=== PATIENT | female | born 1990 | race American Indian/Alaskan Native ===

== ENCOUNTER 2018-12-31 21:51 | Emergency (ER) | payer SELFPAY ==
--- NOTE | 2018-12-31 22:07 | Emergency Department Report ---
Blank Doc - Documentation Documentation: This is a 28-year-old female that presents with URI symptoms. Stated has some chest discomfort only when coughing. This initial assessment/diagnostic orders/clinical plan/treatment(s) is/are subject to change based on patient's health status, clinical progression and re-assessment by fellow clinical providers in the ED. Further treatment and workup at subsequent clinical providers discretion. Patient/guardians urged not to elope from the ED as their condition may be serious if not clinically assessed and managed. Initial orders include: 1- Patient sent to [facility] for further evaluation and treatment 2- cxr
--- NOTE | 2018-12-31 23:04 | XRay Report ---
PROCEDURE: XR CHEST ROUTINE 2V TECHNIQUE: PA and lateral chest radiographs were obtained. HISTORY: cough COMPARISONS: None. FINDINGS: Heart: Normal. Mediastinum/Vessels: Normal. Lungs/Pleural space: Normal. Bony thorax: No acute osseous abnormality. IMPRESSION: Normal examination. This document is electronically signed by Rolan Martinez MD., December 31 2018 11:02:35 PM ET
[2019-01-01 03:17] VITALS: BP 182/99
[2019-01-01] MEDS ORDERED: MOTRIN PO ONE (03:41)
[2019-01-01] MEDS ORDERED: PROVENTIL IH ONE (03:41)
[2019-01-01] MEDS ORDERED: DECADRON IM ONE (03:44)
--- NOTE | 2019-01-01 03:50 | Emergency Department Report ---
- General Chief Complaint: Upper Respiratory Infection Stated Complaint: CHEST PAIN/COUGH Time Seen by Provider: 12/31/18 22:06 Source: patient Mode of arrival: Ambulatory Limitations: No Limitations - History of Present Illness Initial Comments: This is a 28-year-old female that presents with URI symptoms. Stated has some chest discomfort only when coughing. MD Complaint: fever, cough, sore throat, rhinorrhea, nasal congestion, sinus pain Onset/Timin -: week(s) Severity: moderate Severity scale (0 -10): 3 Quality: aching Consistency: constant Improves With: nothing Worsens With: activity Context: sick contacts (sister tx for same problem ) Associated Symptoms: fever, chills, rhinorrhea, nasal congestion, sore throat, cough, chest pain (chest wall pain with cough only ), hoarseness, ear pain. denies: shortness of breath, nausea, vomiting, diarrhea, dysuria, rash Treatments Prior to Arrival: Acetaminophen - Related Data Previous Rx's Medication Instructions Recorded Last Taken Type ALBUTEROL Inhaler(NF) [VENTOLIN 2 puff IH Q4H PRN #1 inha 01/01/19 Unknown Rx Inhaler(NF)] Azithromycin [Zithromax Z-MIGUEL] 250 mg PO DAILY #6 tab 01/01/19 Unknown Rx Benzonatate [Tessalon Perle] 100 mg PO Q8H PRN #30 capsule 01/01/19 Unknown Rx Dexamethasone [Decadron] 4 mg PO Q12H 3 Days #6 tablet 01/01/19 Unknown Rx Ibuprofen 800 mg PO TID PRN #30 tablet 01/01/19 Unknown Rx Allergies Allergy/AdvReac Type Severity Reaction Status Date / Time No Known Allergies Allergy Unverified 12/31/18 21:53 ED Review of Systems ROS: Stated complaint: CHEST PAIN/COUGH Other details as noted in HPI Constitutional: chills, fever Eyes: denies: eye pain, eye discharge, vision change ENT: ear pain, throat pain, epistaxis, congestion Respiratory: cough, wheezing. denies: shortness of breath Cardiovascular: denies: chest pain, palpitations Endocrine: no symptoms reported Gastrointestinal: denies: abdominal pain, nausea, vomiting, diarrhea Genitourinary: denies: urgency, dysuria, discharge Musculoskeletal: denies: back pain, joint swelling, arthralgia Skin: denies: rash, lesions Neurological: denies: headache, weakness, numbness, paresthesias, confusion, abnormal gait, vertigo Psychiatric: denies: anxiety, depression Hematological/Lymphatic: denies: easy bleeding, easy bruising ED Past Medical Hx - Past Medical History Previous Medical History?: Yes Hx Hypertension: Yes - Surgical History Past Surgical History?: No - Social History Smoking Status: Never Smoker Substance Use Type: None - Medications Home Medications: Home Medications Medication Instructions Recorded Confirmed Last Taken Type ALBUTEROL Inhaler(NF) [VENTOLIN 2 puff IH Q4H PRN #1 inha 01/01/19 Unknown Rx Inhaler(NF)] Azithromycin [Zithromax Z-MIGUEL] 250 mg PO DAILY #6 tab 01/01/19 Unknown Rx Benzonatate [Tessalon Perle] 100 mg PO Q8H PRN #30 capsule 01/01/19 Unknown Rx Dexamethasone [Decadron] 4 mg PO Q12H 3 Days #6 tablet 01/01/19 Unknown Rx Ibuprofen 800 mg PO TID PRN #30 tablet 01/01/19 Unknown Rx ED Physical Exam - General Limitations: No Limitations General appearance: alert, in no apparent distress - Head Head exam: Present: atraumatic, normocephalic - Eye Eye exam: Present: normal appearance, PERRL, EOMI. Absent: conjunctival injection Pupils: Present: normal accommodation - ENT ENT exam: Present: mucous membranes moist - Expanded ENT Exam Expanded Ear exam: Present: normal external inspection Mouth exam: Present: tongue normal. Absent: tongue elevation Teeth exam: Present: normal inspection Throat exam: Positive: normal inspection, tonsillar erythema, other (uvula midline no exudate no lesions). Negative: tonsillomegaly, tonsillar exudate, R peritonsillar mass, L peritonsillar mass - Neck Neck exam: Present: normal inspection, full ROM. Absent: tenderness, meningismus, lymphadenopathy, thyromegaly - Respiratory Respiratory exam: Present: normal lung sounds bilaterally, wheezes (exp bilat upper lobes ), chest wall tenderness (right lateral chest wall tenderness to chogh and deep palpation). Absent: respiratory distress, stridor, prolonged expiratory - Cardiovascular Cardiovascular Exam: Present: regular rate, normal rhythm, normal heart sounds. Absent: systolic murmur, diastolic murmur, rubs, gallop - GI/Abdominal GI/Abdominal exam: Present: soft, normal bowel sounds. Absent: distended, tenderness, guarding, rebound, rigid, mass, bruit, hernia - Rectal Rectal exam: Present: deferred - Extremities Exam Extremities exam: Present: normal inspection, full ROM, normal capillary refill. Absent: tenderness, pedal edema, joint swelling, calf tenderness - Back Exam Back exam: Present: normal inspection, full ROM, tenderness. Absent: CVA tenderness (R), CVA tenderness (L), muscle spasm, paraspinal tenderness, vertebral tenderness, rash noted - Expanded Back Exam Expanded Back exam: Absent: saddle anesthesia Back exam: Negative Straight Leg Raising: Right, Left - Neurological Exam Neurological exam: Present: alert, oriented X3, CN II-XII intact, normal gait, reflexes normal. Absent: motor sensory deficit - Psychiatric Psychiatric exam: Present: normal affect, normal mood - Skin Skin exam: Present: warm, dry, intact, normal color. Absent: rash ED Course Vital Signs 12/31/18 01/01/19 22:07 03:16 Temperature 98.1 F 97.6 F Pulse Rate 83 86 Respiratory 16 14 Rate Blood Pressure 186/105 182/99 O2 Sat by Pulse 99 98 Oximetry ED Medical Decision Making - Radiology Data Radiology results: report reviewed, image reviewed normal cxr no infiltrreas no opacities - Medical Decision Making this is bronchitis , with URI plan, albuterol, decadron zpack, ibuprofen, Tessalon pearls, noted htn episode today , pt denies cp no sob no back pain , pt will follow up with her pcp 2-3 days. given referral to [facility] Critical care attestation.: If time is entered above; I have spent that time in minutes in the direct care of this critically ill patient, excluding procedure time. ED Disposition Clinical Impression: Bronchitis URI (upper respiratory infection) Qualifiers: URI type: unspecified viral URI Qualified Code(s): J06.9 - Acute upper respiratory infection, unspecified Disposition: TO HOME OR SELFCARE Is pt being admited?: No Condition: Stable Instructions: Acute Bronchitis (ED), Upper Respiratory Infection (ED) Prescriptions: Dexamethasone [Decadron] 4 mg PO Q12H 3 Days #6 tablet Ibuprofen 800 mg PO TID PRN #30 tablet PRN Reason: pain fever Benzonatate [Tessalon Perle] 100 mg PO Q8H PRN #30 capsule PRN Reason: Cough ALBUTEROL Inhaler(NF) [VENTOLIN Inhaler(NF)] 2 puff IH Q4H PRN #1 inha PRN Reason: shortness or breath wheezing Azithromycin [Zithromax Z-MIGUEL] 250 mg PO DAILY #6 tab Referrals: [facility] [Outside] - 3-5 Days Forms: Work/School Release Form(ED) Time of Disposition: 05:06
== END 2019-01-01 05:15 | disposition home or self-care (01) ==
LOC: ED 21:51
DX: J40 Bronchitis, not specified as acute or chronic (principal); J06.9 Acute upper respiratory infection, unspecified; I10 Essential (primary) hypertension
CPT/HCPCS: 71046; 94640; 96372; 99283; J1100

== ENCOUNTER 2020-04-15 18:22 | Emergency (ER) | payer SELFPAY ==
[2020-04-15 18:39] VITALS: BP 159/95
[2020-04-15] MEDS ORDERED: CYCLOBENZAPRINE 10 MG TAB PO ONE (22:10)
[2020-04-15] MEDS ORDERED: IBUPROFEN 600 MG TAB PO ONE (22:10)
[2020-04-15] MEDS ORDERED: ACETAMINOPHEN 500 MG TAB PO ONE (22:10)
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
== END 2020-04-15 23:40 | disposition home or self-care (01) ==
LOC: ED 18:22
DX: S46.912A Strain of unspecified muscle, fascia and tendon at shoulder and upper arm level, left arm, initial encounter (principal); M62.830 Muscle spasm of back; I10 Essential (primary) hypertension; Z79.899 Other long term (current) drug therapy; V89.2XXA Person injured in unspecified motor-vehicle accident, traffic, initial encounter; Y93.89 Activity, other specified; Y92.410 Unspecified street and highway as the place of occurrence of the external cause; Y99.8 Other external cause status
CPT/HCPCS: 99282